=== PATIENT | female | born 1975 | race Caucasian/White ===

== ENCOUNTER → 2024-05-10 06:22 | Day surgery (SDC) | payer OTHER, SELFPAY | LOC: GI 06:22 | PROVIDERS: ATTENDING PHYSICIAN Internal Medicine Gastroenterology | DX: Z12.11 Encounter for screening for malignant neoplasm of colon (principal); K64.8 Other hemorrhoids; Z83.719 Family history of colon polyps, unspecified | CPT/HCPCS: G0105 ==

== ENCOUNTER → 2024-09-12 12:17 | Outpatient (REF) | payer OTHER, SELFPAY | LOC: WDC 12:17 | PROVIDERS: ATTENDING PHYSICIAN Nurse Practitioner Family | DX: Z12.31 Encounter for screening mammogram for malignant neoplasm of breast (principal) | CPT/HCPCS: 77063; 77067 ==

== ENCOUNTER → 2024-11-19 13:31 | Outpatient (REF) | payer OTHER, SELFPAY | LOC: RAD 13:31 | PROVIDERS: ATTENDING PHYSICIAN Nurse Practitioner Family | DX: M79.672 Pain in left foot (principal) | CPT/HCPCS: 73610; 73630 ==

== ENCOUNTER → 2024-12-25 14:08 | Outpatient (REF) | payer OTHER, SELFPAY | LOC: PAVMRI 14:08 | PROVIDERS: ATTENDING PHYSICIAN Nurse Practitioner Family | DX: M25.572 Pain in left ankle and joints of left foot (principal) | CPT/HCPCS: 73721 ==